=== PATIENT | male | born 1990 | race Caucasian/White ===

== ENCOUNTER 2023-03-10 11:21 | Emergency (ER) | payer SELFPAY ==
[2023-03-10 11:22] VITALS: BP 160/100; PULSE 96; RESP 15; TEMP 36.7; O2SAT 99; BMI 19.2
--- NOTE | 2023-03-10 13:32 | W.ED.LOWEXIN ---
HPI - Extremity Injury (Lower) General: Chief Complaint: Extremity Injury, Lower Stated Complaint: fell out of deer stand Time Seen by Provider: 03/10/23 13:12 Source: patient Mode of arrival: wheelchair Limitations: no limitations History of Present Illness: Patient is a nice 32-year-old male who presents to ED today for evaluation of a left foot injury that he sustained just prior to arrival after he fell from a deer stand. Patient states his only injury was the left foot. He states his left ankle and remainder of lower extremity is unaffected. He has noticed significant swelling and ecchymosis to the dorsum of the left foot. He is not able to bear weight secondary to the pain. MD complaint: foot injury Onset (ago): hour(s) Injury: Left: foot Place: street/outdoors Severity: severe Relieving factors: immobilization Exacerbating factors: weight bearing Context: fall Associated symptoms: Reports inability to bear weight Other symptoms: none Review of Systems Musc: Reports: extremity pain (L foot) and extremity swelling (L foot); Denies: neck pain or back pain Neuro: Denies: headache(s) Physical Exam Const: COMMON NORMALS: no acute distress, average body habitus, patient oriented x3, no limitations, healthy appearing, alert and well nourished Extremity: COMMON NORMALS: capillary refill normal and no calf tenderness GENERAL: Yes normal exam except as noted LEFT LOWER EXTREMITY: Yes foot & digits (significant pain/swelling/ecchymosis dorsal mid to medial L foot) Left foot and digits: Yes ROM (limited secondary to pain/swelling) and Yes neurovascular exam (normal) Neuro: COMMON NORMALS: patient oriented x3, moves all extremities, no focal motor deficits and no sensory deficits noted SENSORIUM/ORIENTATION: Yes alert Course Consultations: Consultation #1: Dr. Camp-recommends CT scan prior to discharge, splint/crutches, non-weight bearing, follow up in office Vital Signs: Vital signs: Vital Signs Temperature 98.1 F 03/10/23 11:22 Pulse Rate 96 03/10/23 11:22 Respiratory Rate 15 03/10/23 11:22 Blood Pressure 160/100 03/10/23 11:22 Pulse Oximetry 99 03/10/23 11:22 Oxygen Delivery Me thod Room Air 03/10/23 11:22 MDM - Extremity Injury (Lower) Medical Decision Making Patient here for multiple foot fractures of the left foot after falling from a deer stand. I spoke to Dr. Camp who recommended CT imaging and can then discharge patient with splint/crutches/instructions for nonweightbearing. He will follow-up with patient in office. Medical Records I reviewed the patient's medical records. Lab Data Radiology Impressions Foot X-Ray 03/10/23 13:42 IMPRESSION: Fractures of the proximal left 2nd, 3rd, and 4th metatarsals and possibly involving the base of the left 1st metatarsal. All radiology interpretation(s) finalized by discharge Discharge Plan Discharge Patient Disposition: Home Clinical Impression: Multiple closed fractures of metatarsal bone of left foot Qualifiers: Encounter type: initial encounter Qualified Code(s): S92.302A - Fracture of unspecified metatarsal bone(s), left foot, initial encounter for closed fracture Condition: Stable Prescriptions: New hydrocodone-acetaminophen 5-325 mg tablet 1 tab PO .q 4-6 PRN (Reason: pain) Qty: 20 0RF Discharge Orders: Discharge ED (Routine); Ordered 03/10/23 Ordered By: Charmaine Goldsmith Patient Instructions: Opioid Safety, Pain Management Activity Restrictions/Additional Instructions: As we discussed case management should contact you early next week to set you up with your follow-up appointment with geodetic computator Dr. Camp for further evaluation and treatment of your multiple foot fractures. As we discussed you need to stay in your splint at all times until that appointment. Nonweightbearing with use of your crutches. You also need to ice and elevate the extremity is much as possible to help with swelling. You have had pain medications E scripted to your pharmacy on file. 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
--- NOTE | 2023-03-10 13:42 | XRR_ITS ---
PROCEDURE INFORMATION: Exam: XR Left Foot Exam date and time: 03/10/2023 2:30 PM Age: 32 years old Clinical indication: Injury or trauma; Fall; Blunt trauma; Foot; Left TECHNIQUE: Imaging protocol: Radiologic exam of the left foot. Views: 3 or more views. COMPARISON: No relevant prior studies available. FINDINGS: Bones/joints: Comminuted, slightly displaced, and angulated fractures involving the proximal shafts and bases of the left 2nd, 3rd, and 4th metatarsal bones. Question avulsion fractures from the base of the left 1st metatarsal. Otherwise, unremarkable. Soft tissues: Distal soft tissue swelling. XR/XR foot LT min 3V* [id number] IMPRESSION: Fractures of the proximal left 2nd, 3rd, and 4th metatarsals and possibly involving the base of the left 1st metatarsal.
--- NOTE | 2023-03-10 14:45 | CTR_ITS ---
PROCEDURE INFORMATION: Exam: CT Left Lower Extremity Without Contrast, Foot Exam date and time: 03/10/2023 3:42 PM Age: 32 years old Clinical indication: Injury or trauma; Other: Fall from tree stand approx 12 feet; Blunt trauma; Foot; Left; Injury date: 03/10/23; Additional info: Multiple fractures; Podiatry request TECHNIQUE: Imaging protocol: CT of the left lower extremity without contrast was performed. Exam focused on the foot. Radiation optimization: All CT scans at this facility use at least one of these dose optimization techniques: automated exposure control; mA and/or kV adjustment per patient size (includes targeted exams where dose is matched to clinical indication); or iterative reconstruction. COMPARISON: CR XR foot LT min 3V* [id number] 03/10/2023 2:30 PM RADIATION DOSE METRICS: Total DLP (mGy-cm): 150.51 FINDINGS: Bones/joints: Comminuted, displaced, impacted, and slightly angled fractures involving the proximal shafts and bases of the left 2nd, 3rd, and 4th metatarsal bones. Slightly displaced avulsion fracture from the plantar base of the left 1st metatarsal bone. Minimally displaced avulsion fractures from all 3 cuneiform bones. No other fractures. No dislocation. Intact joint spaces. Soft tissues: Diffuse soft tissue edema. Some of this could be bruising. No obvious well organized hematoma. CT/CT foot LT wo con* [id number] IMPRESSION: 1. Fractures involving the bases of the left 1st, 2nd, 3rd, and 4th metatarsals. 2. Avulsion fractures from all 3 left cuneiform bones.
--- NOTE | 2023-03-10 17:00 | PC.NURSE ---
pt requests for case management to call his mother for the follow up appointment with podiatry d/t pt not having service at his house.
--- NOTE | 2023-03-10 17:12 | DCPLANNER ---
Note sent to Dr office to call mom for appointment - [phone]
--- NOTE | 2023-03-14 09:10 | DCPLANNER ---
Message sent to podiatry for a follow up for multiple foot fractures-
== END 2023-03-10 17:02 | disposition home or self-care (01) ==
PROVIDERS: Emergency Provider Physician Assistant
DX: S92.302A Fracture of unspecified metatarsal bone(s), left foot, initial encounter for closed fracture (principal); S92.322A Displaced fracture of second metatarsal bone, left foot, initial encounter for closed fracture; S92.332A Displaced fracture of third metatarsal bone, left foot, initial encounter for closed fracture; S92.342A Displaced fracture of fourth metatarsal bone, left foot, initial encounter for closed fracture; W14.XXXA Fall from tree, initial encounter
CPT/HCPCS: 29515; 73630; 73700; 99284

== ENCOUNTER 2023-03-17 09:38 | Day surgery (SDC) | payer SELFPAY ==
[2023-03-17] VITALS (15 sets, daily range): BP systolic 115–144; BP diastolic 75–100; PULSE 54–77; RESP 16–20; TEMP 36.6–36.9; O2SAT 95–100; BMI 19.2
[2023-03-17] MEDS: sodium chloride 0.9% 1,000 ML 30 ML IV (10:20)
[2023-03-17] MEDS: acetaminophen 1,000 MG/100 ML PIGGYBACK 400 MG IV (10:20)
[2023-03-17] MEDS: gabapentin 300 mg Capsule PO (10:22)
--- NOTE | 2023-03-17 10:42 | W.PM.OPSUD ---
Surgery/Procedure H&P Update DATE OF PROCEDURE: March 17, 2023 DATE H&P PERFORMED: 03/13/23 H&P UPDATE INFORMATION: I have reviewed H&P completed within last 30 days, I have examined patient prior to procedure, No changes to prior documentation and H&P is in [facility] EMR on date indicated PREOP DIAGNOSIS: Left foot Lisfranc fracture PLANNED PROCEDURE: Operation Date: 03/17/23 11:35 Proposed Procedures p Arthrodesis Foot 2, 3, 4 left(Left) - Clement Camp DPM s ORIF Metatarsal(Left) - Clement Camp DPM
--- NOTE | 2023-03-17 10:44 | ANES.PREANE2 ---
Pre-Anesthetic Assessment Height/Weight: Height 1.75 m Weight 58.967 kg Temp Pulse Resp BP Pulse Ox O2 Del Method 98.3 F 63 18 136/85 98 Room Air 03/17/23 09:59 03/17/23 09:59 03/17/23 09:59 03/17/23 09:59 03/17/23 09:59 03/17/23 10:00 Preop Diagnosis: Left foot Lisfranc fracture Operation Date: 03/17/23 11:35 Proposed Procedures p Arthrodesis Foot 2, 3, 4 left(Left) - Clement Camp DPM s ORIF Metatarsal(Left) - Clement Camp DPM Last intake: Intake Last Liquid Date 03/16/23 Last Liquid Time 22:00 Last Solid Date 03/16/23 Last Solid Time 22:00 Social No alcohol and No tobacco Exam alert, oriented x 3, clear to auscultation bilaterally and regular rate & rhythm Airway Submandibular: within normal limits Cervical ROM: within normal limits Mallampati: Class II Pulmonary Asthma (mild, well controlled) Anesthetic Plan ASA status: 2 Anesthesia: General Medications/Allergies Home Medications Medication Instructions Recorded Confirmed Last Taken Type hydrocodone 5 mg-acetaminophen 325 1 tab PO .q 4-6 PRN pain #20 tabs 03/10/23 03/17/23 03/11/23 Rx mg tablet albuterol 90 mcg-budesonide 80 2 inh inhalation DAILY PRN 03/17/23 03/17/23 01/24/23 History mcg/actuation HFA aerosol inhaler Shortness Of Breath hydrocodone 5 mg-acetaminophen 325 1 tab PO Q6H PRN pain #28 tabs 03/17/23 Unknown Rx mg tablet ibuprofen 600 mg tablet 600 mg PO Q6H PRN Pain, Moderate 03/17/23 03/17/23 03/16/23 History Allergies Allergy/AdvReac Type Severity Reaction Status Date / Time No Known Allergies Allergy Verified 03/17/23 09:50 Current Medications Generic Name Dose Route Start Last Admin Trade Name Freq PRN Reason Stop Dose Admin Sodium Chloride 1,000 mls @ 30 mls/hr 03/17/23 10:00 03/17/23 10:20 Sodium Chloride 0.9% IV 03/18/23 09:59 30 mls/hr .Q24H GAURI Administration Data Anesthesia Cardiac Studies: No Data to Display
[2023-03-17] MEDS: ceFAZolin 2,000 MG in sodium chloride 0.9% (plus) 50 ML 100 MG IV (11:04)
[2023-03-17] MEDS: BUPivacaine 0.5% INJ 30 mL INJECTION (11:47)
[2023-03-17] MEDS: BUPivacaine 0.5% INJ 10 mL INJECTION (13:14)
--- NOTE | 2023-03-17 13:41 | P.BOP_ITS ---
Date of procedure: March 17, 2023 Surgeon name: Chata PersaudPSavita Flat Sorting Machine Clerk(s) name(s): Roberto Procedure(s) performed: First tarsometatarsal joint arthrodesis left foot, open reduction internal fixation second, third, fourth metatarsals Description of findings: Comminuted fractures of metatarsals 2, 3, 4 and base of metatarsal #1 Estimated blood loss: 10 cc Tourniquet time: 103 minutes Specimen(s) removed: None Post-operative diagnosis: Lisfranc fracture first metatarsal and metatarsal fractures 2, 3, 4 left foot
--- NOTE | 2023-03-17 13:42 | P.OP_ITS ---
Operative Report Date of procedure: March 17, 2023 Pre-op diagnosis: 1. Left lisfranc fracture dislocation 1st metatarsal S93.315A, 2. Left 2nd metatarsal fracture S92.322A, 3. Left 3rd metatarsal fracture S92.332A 4. Left 4th metatarsal fracture S92.342A Post-op diagnosis: Same Procedure done: 1. 1st tarsometatarsal joint arthrodesis left CPT 87058 2. ORIF 2nd metatarsal left CPT 73147 3. ORIF 3rd metatarsal left CPT 87244 4. ORIF 4th metatarsal left CPT 74191 Implants: Standard Lapidus plate with 3.5 mm locking screws, 3.5 short thread headless compression screw, metatarsal plates with corresponding 2.7 mm locking screws, K wire all from [place] [employer] Surgeon: Clement Camp DPM Estimated blood loss: 10 cc 103 minutes Complications: None Procedure: Patient is a 32-year-old male that has a history of left foot Lisfranc fracture dislocation with concomitant fractures of metatarsals 2, 3, 4. The extent of injury necessitates surgical intervention. A lengthy discussion regarding the procedure, including risks and complications has been had with the patient and is noted in the recent clinic note. Written and verbal consent have been obtained. All patient questions have been answered to the patient?s satisfaction. No written or verbal guarantees have been given or implied. The patient has been NPO since midnight. The history has been reviewed and the history and physical is current. The signed consent was confirmed and placed in the patient chart. Patient imaging has been reviewed and is consistent with the diagnosis. Under mild sedation, the patient was brought into the operating room and placed on the table in the supine position. IV antibiotics were given by the anesthesia team as preoperative surgical prophylaxis. General sedation was then performed by the anesthesiateam. A pneumatic tourniquet was then placed about the left thigh. The operative extremity was then prepped and draped in the usual fashion. The extremity was then elevated and exsanguinated before the tourniquet was inflated to 325 mmHg. After inflation, the following procedure was then performed. Attention was directed to the left foot where a 6 cm incision was made over the first tarsometatarsal joint. Dissection was carried down through subcutaneous and superficial fascia to the level of the periosteum. The periosteum was incised to expose the first tarsometatarsal joint. There is noted to be fracture to the plantar aspect of the joint and the base of the first metatarsal. Using a combination of osteotome and curette, the articular cartilage from the medial cuneiform and base of the first metatarsal was removed. After adequate removal of cartilage and subchondral bone the site was irrigated with sterile saline. A fenestration drill bit was then used to fenestrate the subchondral bone to aid in arthrodesis. The first ray was positioned in an appropriate position before a Lapidus plate was applied to the medial aspect of the first tarsometatarsal joint. The proximal holes of the plate were drilled and filled in standard fashion. The eccentric hole of the plate was then drilled and filled. Good compression across the joint was noted. A lag screw was then driven across the joint using a 3.5 mm headless compression screw from [place] [employer]. The distal holes of the plate were then drilled and filled in standard fashion. Good positioning of the plate and screws was noted on C-arm imaging as well as clinically. Next, attention was directed to the dorsum of the foot where a 10 cm incision was made over the midfoot. Dissection was carried down through subcutaneous and superficial fascia. Care was taken to identify the neurovascular bundle and this was retracted medially out of the operative field. Dissection was carried down to the level of the interval between the second and third metatarsals. There is noted to be significant comminution of the second and third metatarsals. After exposing the second and third tarsometatarsal joints, an angled straight plate and an angled T plate from [place] [employer] were positioned over the second and third tarsometatarsal joint. Good positioning of the plates was visualized clinically as well as on C-arm imaging. The holes of the plate were drilled and filled in standard fashion from proximal to distal. These plates were placed to span the combination of the metatarsal fractures. Next, a K wire was driven across the fourth tarsometatarsal joint to stabilize the fourth metatarsal fracture. The incision sites were then irrigated with copious muscle sterile saline. Attention was then directed to closure. Deep tissue was closed with 2-0 Vicryl followed by subcuticular closure with 3-0 Vicryl and skin closure with 4-0 nylon in horizontal mattress fashion. The tourniquet was let down and good hyperemic response was noted to all digits of the left foot. Hemostasis was noted to be achieved. Incisions were dressed with Xeroform, 4 x 4 gauze, Kerlix before the patient was placed in a well-padded below-knee posterior splint. The patient tolerated the procedure and anesthesia well and without complication . The patient was transported from the operating room to the recovery room with vital signs stable and vascular status intact to all digits of the left foot. The patient was given both written and verbal instructions to remain nonweightbearing to the operative extremity, to keep dressings/splint clean, dry and intact and to take pain medication as directed. The patient will follow-up in the outpatient setting at their scheduled appointment. The patient was discharged with my personal number and was instructed to call if any questions or issues should arise. They were discharged home once anesthesia criteria was met.
--- NOTE | 2023-03-17 13:44 | XR_ITS ---
WS: [id number] XR foot LT min 3V* [id number] REASON FOR EXAM: post op FINDINGS: Plate and screw at the fracture sites in the base of the first, second, and third metatarsals across the metacarpal carpal joints. There is an additional long screw for fixation in the first metatarsal. The fourth metatarsal fracture site and the carpometacarpal joint are fixed with a long pin. Surgical appliances are intact and appear in proper position and alignment. Fracture fragments and joint spaces are properly aligned. IMPRESSION: Complex surgery of the forefoot/midfoot with no abnormality.
--- NOTE | 2023-03-17 13:59 | ANE.PACU2 ---
Inpatient post-anesthesia follow up: Vital signs: Temperature 98.3 F Pulse Rate 63 Respiratory Rate 18 Blood Pressure 136/85 Pulse Oximetry 98 Oxygen Delivery Me thod Room Air Oxygen Flow Rate 6 Fraction of Inspir ed Oxygen Hydration adequate: Yes Nausea and vomiting: No Pain level: 6 Mental status: Baseline Additional Comments: Pain actively treated in PACU
[2023-03-17] MEDS: HYDROmorphone 1 mg/mL INJ 1 mL 0.5 MG IVP (14:02)
[2023-03-17] MEDS: HYDROcodone-acetaminophen 5-325 mg Tablet 1 TAB PO (14:35)
== END 2023-03-17 15:15 | disposition home or self-care (01) ==
PROVIDERS: Visit Provider Podiatrist Foot & Ankle Surgery
PROC: (CPT 28740; principal; 2023-03-17 11:35)
PROC: (CPT 28485; 2023-03-17 11:35)
DX: S93.315A Dislocation of tarsal joint of left foot, initial encounter (principal); S92.322A Displaced fracture of second metatarsal bone, left foot, initial encounter for closed fracture; S92.332A Displaced fracture of third metatarsal bone, left foot, initial encounter for closed fracture; S92.342A Displaced fracture of fourth metatarsal bone, left foot, initial encounter for closed fracture; W17.89XA Other fall from one level to another, initial encounter; J45.909 Unspecified asthma, uncomplicated
CPT/HCPCS: 28485 ×3; 28730; 73630; 76000; C1713; J0131; J0690; J1170; J2250; J2405; J2704; J2795; J3010; J3490; J7030

== ENCOUNTER → 2023-03-29 13:50 | Outpatient (BNVA) | payer SELFPAY | PROVIDERS: Visit Provider Podiatrist Foot & Ankle Surgery | DX: S92.342D Displaced fracture of fourth metatarsal bone, left foot, subsequent encounter for fracture with routine healing; S92.332D Displaced fracture of third metatarsal bone, left foot, subsequent encounter for fracture with routine healing; S92.322D Displaced fracture of second metatarsal bone, left foot, subsequent encounter for fracture with routine healing; S92.302D Fracture of unspecified metatarsal bone(s), left foot, subsequent encounter for fracture with routine healing; X58.XXXD Exposure to other specified factors, subsequent encounter | CPT/HCPCS: 73630 ==

== ENCOUNTER → 2023-04-12 14:19 | Outpatient (BNVA) | payer SELFPAY | PROVIDERS: Visit Provider Podiatrist Foot & Ankle Surgery | DX: Z98.890 Other specified postprocedural states; S92.342D Displaced fracture of fourth metatarsal bone, left foot, subsequent encounter for fracture with routine healing; S92.332D Displaced fracture of third metatarsal bone, left foot, subsequent encounter for fracture with routine healing; S92.322D Displaced fracture of second metatarsal bone, left foot, subsequent encounter for fracture with routine healing; X58.XXXD Exposure to other specified factors, subsequent encounter; S92.302D Fracture of unspecified metatarsal bone(s), left foot, subsequent encounter for fracture with routine healing | CPT/HCPCS: 73630 ==

== ENCOUNTER → 2023-04-26 13:19 | Outpatient (BNVA) | payer SELFPAY | PROVIDERS: Visit Provider Podiatrist Foot & Ankle Surgery | DX: Z98.890 Other specified postprocedural states (principal); S92.342D Displaced fracture of fourth metatarsal bone, left foot, subsequent encounter for fracture with routine healing; S92.332D Displaced fracture of third metatarsal bone, left foot, subsequent encounter for fracture with routine healing; S92.322D Displaced fracture of second metatarsal bone, left foot, subsequent encounter for fracture with routine healing; W17.89XD Other fall from one level to another, subsequent encounter | CPT/HCPCS: 73630 ==

== ENCOUNTER → 2023-05-10 14:12 | Outpatient (BNVA) | payer SELFPAY | PROVIDERS: Visit Provider Podiatrist Foot & Ankle Surgery | DX: Z98.890 Other specified postprocedural states; S92.322D Displaced fracture of second metatarsal bone, left foot, subsequent encounter for fracture with routine healing; S92.332D Displaced fracture of third metatarsal bone, left foot, subsequent encounter for fracture with routine healing; S92.342D Displaced fracture of fourth metatarsal bone, left foot, subsequent encounter for fracture with routine healing; X58.XXXD Exposure to other specified factors, subsequent encounter | CPT/HCPCS: 73630 ==

== ENCOUNTER → 2023-06-14 15:09 | Outpatient (BNVA) | payer SELFPAY | PROVIDERS: Visit Provider Podiatrist Foot & Ankle Surgery | DX: S92.342D Displaced fracture of fourth metatarsal bone, left foot, subsequent encounter for fracture with routine healing; S92.332D Displaced fracture of third metatarsal bone, left foot, subsequent encounter for fracture with routine healing; S92.322D Displaced fracture of second metatarsal bone, left foot, subsequent encounter for fracture with routine healing; Z98.890 Other specified postprocedural states; X58.XXXD Exposure to other specified factors, subsequent encounter | CPT/HCPCS: 73630 ==